=== PATIENT | male | born 1965 | race Caucasian/White ===

== ENCOUNTER 2019-05-30 22:44 | Inpatient (IN) | payer MEDICARE, MEDICAID ==
[~2019-05-30] VITALS: Ht 190.5 cm; Wt 164.8 kg
[2019-06-03 15:13] VITALS: BP 123/77
== END 2019-06-03 16:21 | DRG 62 ==
LOC: ED 05-31 00:40 → EDIP 05-31 02:09 → CCU 05-31 02:10 → 4WST 06-01 12:08
PROVIDERS: ADMIT Family Medicine; ATTEND Family Medicine
PROC: 3E03317 Introduction of Other Thrombolytic into Peripheral Vein, Percutaneous Approach (ICD-10-PCS; principal; 2019-05-31)
PROC: 02HV33Z Insertion of Infusion Device into Superior Vena Cava, Percutaneous Approach (ICD-10-PCS; 2019-05-31)
PROC: B5181ZA Fluoroscopy of Superior Vena Cava using Low Osmolar Contrast, Guidance (ICD-10-PCS; 2019-05-31)
DX: I63.9 Cerebral infarction, unspecified (principal); G81.04 Flaccid hemiplegia affecting left nondominant side; D50.9 Iron deficiency anemia, unspecified; E87.6 Hypokalemia; F45.9 Somatoform disorder, unspecified; G43.109 Migraine with aura, not intractable, without status migrainosus; R47.81 Slurred speech; G89.29 Other chronic pain; I50.9 Heart failure, unspecified; R29.810 Facial weakness; R47.02 Dysphasia; Z79.82 Long term (current) use of aspirin; Z91.041 Radiographic dye allergy status
CPT/HCPCS: 36415; 36556; 70450; 80047; 80048; 80053; 80061; 80307; 82272; 82728; 82962; 83036; 83540; 83550; 83880; 84443; 84484; 85025; 85610; 85730; 87081; 93005; 96365; 96376; G0378; J1170; J2997; 92523-GN; J0780; J1200; J2270